=== PATIENT | female | born 1950 | race Hispanic/Latino ===

== ENCOUNTER 2022-12-30 11:35 | Emergency (ER) | payer MEDICARE, OTHER ==
[~2022-12-30] VITALS: Ht 154.9 cm; Wt 60.3 kg
[2022-12-30] MEDS ORDERED: KETOROLAC TROMETHAMINE 30 MG/ML VIAL IV STA (13:46)
[2022-12-30 13:57] VITALS: O2SAT 97
[2022-12-30] MEDS ORDERED: SODIUM CHLORIDE 0.9% 1000ML 1,000 ML IV SCH (14:00)
[2022-12-30] MEDS ORDERED: IOPAMIDOL 370 MG/ML 100 ML INFUS..BTL INJ ONE (14:51)
[2022-12-30] MEDS ORDERED: NAPROSYN500 MG PO (15:36)
== END 2022-12-30 15:48 | disposition home or self-care (01) ==
LOC: EDBD 11:43 → FSED 11:43
DX: R07.89 Other chest pain (principal); S20.214A Contusion of middle front wall of thorax, initial encounter; V53.6XXA Passenger in pick-up truck or van injured in collision with car, pick-up truck or van in traffic accident, initial encounter; Y92.488 Other paved roadways as the place of occurrence of the external cause; I10 Essential (primary) hypertension; E11.65 Type 2 diabetes mellitus with hyperglycemia; M81.0 Age-related osteoporosis without current pathological fracture
CPT/HCPCS: 71260; 80053; 81003; 82553; 84484; 85025; 93005; 99284; J1885; J7030; Q9967